=== PATIENT | male | born 1955 | race Caucasian/White ===

== ENCOUNTER → 2025-04-23 08:25 | Outpatient (REF) | payer OTHER, SELFPAY | LOC: RAD 08:25 | PROVIDERS: ATTENDING PHYSICIAN Podiatrist Foot Surgery | DX: I73.9 Peripheral vascular disease, unspecified (principal); S91.302A Unspecified open wound, left foot, initial encounter | CPT/HCPCS: 93922; 93925 ==

== ENCOUNTER 2025-05-07 07:11 | Day surgery (SDC) | payer OTHER, SELFPAY ==
[2025-05-07] VITALS (16 sets, daily range): BP systolic 103–145; BP diastolic 59–111; BMI 24.4
--- NOTE | 2025-05-07 07:41 | W.SUR.PREOP ---
Pre-Operative Surgical Note
-
I have examined this patient prior to the performance of the scheduled procedure.
The patient's condition is unchanged from the time of the current History and
Physical and the patient is able to undergo the scheduled procedure.
[2025-05-07] MEDS: NSS 252 ML IV (07:55)
[2025-05-07 08:26] LABS: Hematocrit 43.6 % (39.0-52.0); Hemoglobin 15.4 g/dL (13.0-18.0); Mean Corp Hgb Conc. 35.3 g/dL (33.0-37.0); Mean Corpuscular Volume 98.6 fL (80.0-94.0); Platelet Count 197 10^3/uL (130-400); Red Cell Dist. Width 13.6 % (11.5-14.5)
[2025-05-07 08:36] LABS: INR 0.92; PT 12.9 Sec (11.4-14.6)
[2025-05-07 08:37] LABS: APTT 32.2 Sec (23.4-35.0)
[2025-05-07 08:42] LABS: Blood Urea Nitrogen 9 mg/dl (9-20); Calcium 9.6 mg/dl (8.4-10.2); Carbon Dioxide 24 mmol/L (22-30); Chloride 98 mmol/L (98-107); Estimated Creatinine Clearance 89 ml/min; Glucose 117 mg/dl (70-99); Potassium 3.9 mmol/L (3.5-5.1); Sodium 131 mmol/L (135-145); eGFR > 60.00
--- NOTE | 2025-05-07 09:57 | W.SUR.POST ---
Surgical Immediate Post Op
Note
Pre Op Diagnosis: PAD
Post Op Diagnosis: PAD
Procedure Performed: LLE arteriogram, left AT long segment balloon angioplasty
Primary Surgeon: Victorino
Anesthesia: local and sedation
Estimated Blood Loss: <2cc
Fluids: see anesthesia flow sheet
Drains/Shunts: none
Specimens/Cultures: none
Doppler/Duplex/Angio (Y/N): Y
Complications: none
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
[2025-05-07 11:01] LABS: ALT (SGPT) 18 U/L (0-50); AST (SGOT) 25 U/L (17-59); Albumin 4.3 g/dl (3.5-5.0); Alkaline Phosphatase 68 U/L (38-126); Total Protein 7.0 g/dl (6.3-8.2)
[2025-05-07] MEDS: NSS 1000 IV (11:46)
[2025-05-07] MEDS: LOW STRENGTH ASPIRIN 81 MG PO (11:51)
[2025-05-07] MEDS: AUGMENTIN 875 MG/125 MG 1 TABLET PO (12:07)
--- NOTE | 2025-05-07 16:28 | OR.RPT ---
Operative Report
Operative Report
PROCEDURE DATE: 05/07/2025
Preoperative diagnosis: Chronic limb threatening ischemia left lower extremity.
Postoperative diagnosis: Same
Procedure:
1. Duplex assisted right common femoral artery cannulation.
2. Aortogram and pelvic angiogram.
3. Left lower extremity arteriogram.
4. Balloon angioplasty of left anterior tibial artery (long segment) with 3 mm angioplasty balloon and subsequent 2.5 mm shorter segment balloon.
5. Right femoral angiography.
6. Supervision and interpretation.
Surgeon: Victorino
Travel Registered Nurse Nicu: None
Complications: None
Anesthesia: Local, sedation
Fluoroscopy:
10.8 min
57 mGy
13.60 gy.cm2
Indications for procedure:
Chronic limb threatening ischemia with nonhealing left foot wounds. Risk/benefits/alternatives of angiography were fully discussed. Patient understood all wish to proceed.
Description of procedure:
Patient was identified, brought to the operating room. Placed on the table in the supine position. After the adequate administration of anesthesia, the patient was prepped and draped in the standard surgical fashion. A standard preoperative
timeout was undertaken and everybody was in agreement with the plan.
The right common femoral artery was accessed with a micropuncture kit under direct duplex ultrasound guidance. A 5 Mauritian sheath was then advanced over a 0.035 inch wire, and a azul's hook catheter was advanced into the abdominal aorta.
Aortogram and pelvic angiogram was obtained. Findings as follows:
Infrarenal aorta: Patent infrarenal abdominal aorta with no stenosis. However there is significant eccentric calcification. In addition there appears to be a small distal infrarenal aortic aneurysm.
Right common iliac artery: Patent with no significant stenosis. Calcified rosado.
Right external iliac artery: Patent with mild stenosis about 2 cm distal to the bifurcation of the common iliac artery..
Left common iliac artery: Patent with no significant stenosis, calcified rosado.
Left external iliac artery: Patent with no significant stenosis.
Using a floppy angled hydrophilic wire, the left common femoral artery was cannulated and the catheter was advanced. Left lower extremity arteriogram was obtained. Findings as follows:
Common femoral artery: Patent with no significant stenosis.
Profunda femoris artery: Patent with no significant stenosis.
Superficial femoral artery: Luminal irregularities throughout, but no significant stenosis at all noted.
Popliteal artery: Patent with no significant stenosis.
Anterior tibial artery: Patent at its origin and through its entire course. However there is diffuse stenosis from about 2 to 3 cm beyond the origin all the way to the level of the distal ankle. Areas of potential focal occlusion within this
diffuse stenosis. At the ankle the artery became robust again in size and gave rise to the dorsalis pedis on the foot which gave digital branches.
Tibial peroneal trunk: Patent with no significant stenosis.
Peroneal artery: Patent, more dominant of the runoff vessels. At the ankle gave 1 collateral to reconstitute the distal anterior tibial artery. Second collateral vessel reconstituted the posterior tibial artery. It almost appeared like a natural
connection to the posterior tibial artery (anatomic aberrancy) versus a collateral. Regardless and that collateral or aberrant anatomy there was severe stenosis/focal occlusions x 2.
Posterior tibial artery: Collateral that followed the course of the posterior tibial artery through its proximal two thirds, but unclear that that is the real vessel. At the ankle the posterior tibial artery was reconstituted by the peroneal
collateral as noted above.
At this point I selectively cannulated the superficial femoral artery and and then the popliteal artery. I then exchanged for a Storq wire and an up and over 5 Mauritian 70 cm sheath. Patient was given an appropriate dose of IV heparin. Now under
roadmap assisted guidance using a flopping of hydrophilic wire and a CXI catheter I was able to traverse the severe stenoses throughout the anterior tibial artery and gain wire access into the distal anterior tibial artery/dorsalis pedis. I
advanced the CXI catheter and then exchanged for a SENIOR MARKETING DATA ANALYST wire. I then performed balloon angioplasty of the long segment with a long 3 mm angioplasty balloon with overlapping inflations. Completion angiogram now demonstrated a good result with
significant resolution of the diffuse stenosis. At the ankle still though just proximal to the reconstitution of the more distal anterior tibial artery points, there was still residual stenosis. Therefore I then used a shorter segment 3 mm
angioplasty balloon. Completion angiogram demonstrated some resolution of the stenosis but the flow was still a little bit slow, and there may have been a small dissection flap distally. Therefore in order to tack this flap I used a 2.5 mm balloon
again with a prolonged inflation. Completion angiogram demonstrated no residual flap or stenosis. At this point I was very satisfied. I debated whether to balloon that collateral branch that fed the posterior tibial artery from the peroneal.
However my concern was that this was a small collateral branch and could injure this branch and render worsened perfusion. I felt that if the posterior tibial distally needed to be revascularized, it may be better served with a bypass. At this
point over a 0.035 inch wire I withdrew the sheath to the right external iliac artery. Right femoral angiogram demonstrated good puncture in the right common femoral artery. The SFA appeared chronically occluded (appeared patent for about 2 cm).
There is reconstitution of the distal SFA/above-knee popliteal artery. At this point I exchanged for a short 5 Mauritian sheath. Wires and catheters were all withdrawn. Patient was taken to recovery room where the sheath was withdrawn and manual
pressure was applied to the puncture site. Patient had been also given protamine to reverse the heparin. Hemostasis was fully achieved. The patient tolerated the procedure well.
== END 2025-05-07 16:15 | disposition home or self-care (01) ==
LOC: CATH 07:11
PROVIDERS: ATTENDING PHYSICIAN Surgery Vascular Surgery; FAMILY PHYSICIAN Family Medicine
DX: I70.222 Atherosclerosis of native arteries of extremities with rest pain, left leg (principal)
CPT/HCPCS: 37228; C1725; 80053; 82248; 85027; 85610; 85730; 86850; 86900; 86901; C1769; C1887; C1894; Q9967

== ENCOUNTER 2025-05-15 13:25 | Inpatient (IN) | payer OTHER, SELFPAY ==
[2025-05-15] VITALS (10 sets, daily range): BP systolic 96–141; BP diastolic 52–89; BMI 23.8; BMI 23.0
--- NOTE | 2025-05-15 09:07 | ED.GENMED ---
History of Present Illness
General
Chief Complaint: Post Operative Problem(s)
Source: patient
Exam Limitations: none
Time Seen by Provider: 05/15/25 09:00
History of Present Illness
History of Present Illness:
See MDM
Past History
Past History
ED Past Medical History: Hypercholesterolemia
ED Past Surgical History: None
Social History
Tobacco: Non-smoker
Alcohol: None
Phy Exam
Physical Exam
Physical Exam:
See MDM
Course
Orders/Labs/Results
Orders:
Orders
05/15/25 09:06
Electrocardiogram (*1) Urgent
Reason for Study: PreOp
EKG- Treatment ONCE
Toes 2 Views, Left CR [CR Toe(s) Min 2 Vw Left] Urgent
Comment:
Reason For Exam: left 2-3 toe ulceration and pain
05/15/25 09:07
Consult Vascular Surgery [Vascular Surgery Consult] Routine
Consulting Provider: Byron Gleason
Was physician already notified: Yes
05/15/25 09:09
Consult Podiatry [PODIATRY CONSULT] Routine
Consulting Provider: Fco Gayle
Was physician already notified: Yes
05/15/25 09:21
US CHRISTIN/TBI Only JONATHON Urgent
Reason For Exam: non-healing toe wound
05/15/25 09:34
Type+Screen Urgent
Complete Blood Count/With Diff Urgent
Comprehensive Metabolic Panel Urgent
PTT Urgent
Prothrombin Time Urgent
Abnormal Lab Results
05/15/25
09:34
RBC 4.09 L 10^6/uL
(4.70-6.10)
MCV 99.5 H fL
(80.0-94.0)
MCH 35.9 H pg
(27.0-31.0)
Absolute Monos (auto) 0.9 H 10^3/uL
(0.1-0.6)
Absolute Eos (auto) 0.8 H 10^3/uL
(0-0.7)
Lymphocytes % 15.4 L %
(20.5-51.1)
Monocytes % 9.7 H %
(1.7-9.3)
Eosinophils % 8.6 H %
(0-6)
Sodium 125 L mmol/L
(135-145)
Chloride 97 L mmol/L
(98-107)
05/15/25 09:34
05/15/25 09:34
Vital Signs
Initial and Last Documented VS:
Initial Vital Signs
Temp Pulse Resp BP Pulse Ox
97.8 F 73 16 141/70 98
05/15/25 08:55 05/15/25 08:55 05/15/25 08:55 05/15/25 08:55 05/15/25 08:55
Last Documented Vital Signs
Temp Pulse Resp BP Pulse Ox
97.8 F 73 16 141/70 98
05/15/25 08:55 05/15/25 08:55 05/15/25 08:55 05/15/25 08:55 05/15/25 09:08
MDM/Problems Addressed
Differential Diagnosis Includes:
Note:
CHIEF COMPLAINT(S)
Non-healing wound on the left toe
HISTORY OF PRESENT ILLNESS
The patient is a 69-year-old male who presents with a non-healing wound on the left toe. He recently underwent an angioplasty procedure with Dr. Gleason due to a blockage aimed at improving blood flow to the affected area. Despite the procedure, the
wound has not shown signs of healing, raising concerns about possible osteomyelitis or the need for surgical removal of the toe. The patient expresses frustration as he has been dealing with the issue for over a month and a half. He describes the
wound as painless, which may be due to compromised blood flow affecting nerve function. The patient reports that he has had a 'hammer toe' issue for over 25 years, and despite having good pulses now as noted by Dr. Gleason, previously there was
insufficient blood flow to the area.
PAST MEDICAL AND SURIGICAL HISTORY
The patient reports having dealt with a 'hammer toe' for over 25 years.
CHRONIC MEDICAL CONDITIONS SIGNIFICANTLY AFFECTING CARE
The patient does not have a history of diabetes, but he experiences poor blood flow affecting the toe, analogous to a diabetic foot condition.
MEDICATIONS
The patient is currently on antibiotics, specifically doxycycline and Levaquin (levofloxacin).
REVIEW OF SYSTEMS
- Vascular/Blood Flow: Condition described pooja to diabetic foot due to poor blood flow.
- Endocrine: No history of diabetes reported.
- Neurological: No pain reported in the affected toe, potentially related to compromised blood flow and nerve function.
PHYSICAL EXAM
General: Alert, no acute distress.
Skin: Warm, dry.
Head: Normocephalic, atraumatic
Neck: Appears supple, trachea midline.
Eyes, Ears, Nose, Mouth, and Throat: Moist mucous membranes
Cardiovascular: No signs of cyanosis
Respiratory: Respirations are non-labored.
Abdomen: Non-distended
Musculoskeletal: DP pulses palpable on left foot. Decreased capillary refill to toes. Ulceration noted to the dorsum aspect of left 2nd and 3rd toe.
Neurological: No focal neurological deficit observed.
Psychiatric: Cooperative, appropriate mood and affect.
PROBLEM LIST
- Acute: Non-healing wound on the left toe, potential osteomyelitis.
PLAN
- Arrange basic blood work for pre-operative evaluation.
- Obtain an x-ray of the toe to rule out or confirm osteomyelitis.
- Coordinate with Dr. Gleason regarding further management and surgical considerations if indicated.
DIFFERENTIAL DIAGNOSIS
The Differential Diagnosis includes, in no particular order and is not limited to:
1. Osteomyelitis
2. Peripheral arterial disease
3. Neuropathy secondary to vascular insufficiency
4. Soft tissue infection
5. Chronic non-healing ulcer
6. Vascular insufficiency
7. Arteriosclerosis obliterans
8. Veno-occlusive disease
9. Ischemic ulcer
10. Raynauds phenomenon
05/15/25 - 09:24
Patient case discussed with podiatry and vascular surgery; will admit to the hospitalist service for further management. Plan to repeat Doppler studies of the leg as recommended by vascular surgery.
SUMMARY OF ENCOUNTER
The patient was seen in the emergency department for a non-healing ulceration on his left toe despite having undergone an angioplasty of the same leg. The concern for the poorly healing wound led to a recommendation by podiatry for the patient�s
admission for a potential toe amputation. The patient remains stable and well-appearing.
DISPOSITION
Admit
MANAGEMENT OF THE PATIENTS CARE WAS DISCUSSED WITH
The patients case was discussed with the podiatry team, and it was decided to admit the patient to the hospital service. There is an operating room (OR) scheduled for the patient later today.
PLAN
Admit to hospital service for further management and scheduled OR for potential toe amputation. The patient will remain NPO in preparation for the potential procedure.
MEDICAL DECISION MAKING
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
-Data:
Category 3: Discussion of management with podiatry for the need for hospital admission and the potential toe amputation.
DIAGNOSIS
1. Non-healing ulcer of left toe, ICD-10: L97.509
2. Peripheral vascular disease, unspecified, ICD-10: I73.9
*Pulse Oximetry
SaO2: 98
Oxygen Mode of Delivery: Room air
Patient hypoxic: no
*EKG
Interpreted by ED Provider?: Yes
EKG Intrepretation Date: 05/15/25
EKG Intrepretation Time: 11:46
Interpretation: normal (Sinus rhythm with sinus arrhythmia, normal axis, no STEMI)
*Critical Care Note
Total Time (30-74mins, 75-104mins- exclusive of procedures): Not Applicable
ED Attending Note
-
Portions of this chart may have been created with voice recognition software.� Occasional wrong word or��sound alike� substitutions may have occurred due to the inherent limitations of voice recognition software.
Discharge Plan
Departure
Patient Disposition: Admit
Date of Disposition: 05/15/25
Time of Disposition: 10:49
Admit to: Med/Surg
Presentation/result/management discussed w/ accepting MD/DO: Hospitalist
Discharge Problem:
Nonhealing ulcer of left lower extremity
Prescriptions:
No Action
levofloxacin 750 mg Tablet
750 mg PO DAILY
atorvastatin 10 mg Tablet
10 mg PO QPM Qty: 90 0RF
aspirin 81 mg Tablet,Chewable
81 mg PO DAILY Qty: 90 0RF
doxycycline hyclate 100 mg tablet
100 mg PO BID
Referrals:
UNKNOWN - PT DOES,NOT KNOW [Family Provider]
Interventions
Interventions:
*Risk Screen - Suicide Last Done: 05/15/25 08:55
*General Assessment Last Done: 05/15/25 09:18
*Neglect/Abuse Screening Last Done: 05/15/25 08:55
*ED- Fall Risk Assessment Last Done: 05/15/25 09:18
*ED COVID-19 Vaccine History Last Done: 05/15/25 09:18
*ED Influenza Vaccine History Last Done: 05/15/25 09:18
ED-Skin Assessment Last Done: 05/15/25 09:18
Discharge Date and Time
Print Language: SLOVAK
[2025-05-15 09:45] LABS: Hematocrit 40.7 % (39.0-52.0); Hemoglobin 14.7 g/dL (13.0-18.0); Mean Corp Hgb Conc. 36.1 g/dL (33.0-37.0); Mean Corpuscular Volume 99.5 fL (80.0-94.0); Nucleated Red Blood Cells % 0 % (-); Platelet Count 209 10^3/uL (130-400); Red Cell Dist. Width 13.6 % (11.5-14.5)
[2025-05-15 09:52] LABS: INR 0.90; PT 12.6 Sec (11.4-14.6)
[2025-05-15 09:53] LABS: APTT 33.0 Sec (23.4-35.0)
[2025-05-15 10:00] LABS: ALT (SGPT) 16 U/L (0-50); AST (SGOT) 21 U/L (17-59); Albumin 4.0 g/dl (3.5-5.0); Alkaline Phosphatase 64 U/L (38-126); Blood Urea Nitrogen 12 mg/dl (9-20); Calcium 9.1 mg/dl (8.4-10.2); Carbon Dioxide 22 mmol/L (22-30); Chloride 97 mmol/L (98-107); Glucose 96 mg/dl (70-99); Potassium 4.2 mmol/L (3.5-5.1); Sodium 125 mmol/L (135-145); Total Protein 6.6 g/dl (6.3-8.2); eGFR > 60.00
--- NOTE | 2025-05-15 13:20 | HPS.HSE ---
Family Physician
-
Family Physician: NOT KNOW UNKNOWN - PT DOES
Chief Complaint
-
Non-healing Toe ulcer
History of Present Illness
69M with PAD s/p recent LLE angioplasty, tobacco use, presents with L 2nd toe ulcer, nonhealing. He underwent hammertoe procedure with poor healing, s/p debridement with persistent issues. Denies pus or bleeding. Notes BLE ankle edema. He denies
fevers, chills, CP, SOB, recent illness. He was sent in by podiatry to be admitted for OR.
Medical History
Past Medical History
Past Medical History: Reports None
Past Surgical History: Reports Other
Additional Past Surgical History:
angioplasty LLE
Social History
Tobacco: Smoker (1/2 ppd x 40+ years)
Alcohol: Daily (1 beer per day)
Drug: None
Family History
Family History: Hypertension (in mother)
Allergies / Home Medications
Allergies reflects when Allergies were last updated in [employer].
Home Medications with original date entered in [employer]
Allergy/Medication List:
Allergies
Allergy/AdvReac Type Severity Reaction Status Date / Time
No Known Allergies Allergy Unverified 05/07/25 07:52
Home Medications
levofloxacin 750 mg tablet 750 mg PO DAILY 05/05/25
aspirin 81 mg chewable tablet 81 mg PO DAILY #90 tabs 05/07/25
atorvastatin 10 mg tablet 10 mg PO QPM #90 tabs 05/07/25
doxycycline hyclate 100 mg tablet 100 mg PO BID 05/15/25
Review of Systems
-
A 12 point ROS was completed and negative except as noted: Yes
Physical Exam
Vital Signs
Vital Signs
Temp Pulse Resp BP Pulse Ox
97.8 F 73 16 141/70 98
05/15/25 08:55 05/15/25 08:55 05/15/25 08:55 05/15/25 08:55 05/15/25 09:08
Physical Exam
General: Well Developed, Well Nourished and No Apparent Distress
HEENT: NormoCephalic, Moist mucous membranes and Atraumatic
Respiratory: Clear
Cardiac: S1/S2 and Regular Rhythm; No Murmur or Rub
GI: Soft, Non Tender, Non Distended and Normal Bowel Sounds; No Organomegaly
Rectal: Deferred by Provider
Musculoskeletal: Edema, Left Lower Extremity, Edema, Right Lower Extremity and Other (both feet erythematous and pitting edema, distal pulses intact)
Skin: Ulcers (left 2nd toe)
Neuro: Awake, AO x 3 and Nonfocal/grossly intact
Psych: Calm
Laboratory Results
-
05/15/25 09:34
05/15/25 09:34
Laboratory Results
PT 12.6 Sec (11.4-14.6) 05/15/25 09:34
INR 0.90 05/15/25 09:34
APTT 33.0 Sec (23.4-35.0) 05/15/25 09:34
Total Bilirubin 1.3 mg/dl (0.2-1.3) 05/15/25 09:34
AST 21 U/L (17-59) 05/15/25 09:34
ALT 16 U/L (0-50) 05/15/25 09:34
Alkaline Phosphatase 64 U/L (38-126) 05/15/25 09:34
Data Reviewed
-
Diagnostic Radiology: Report Reviewed by me (Findings suggest previous osteotomy at the PIP joint of the second and third toes. There is no radiographic evidence of osteomyelitis however MRI is more sensitive if there is clinical suspicion)
Lab Data: Labs Reviewed by me and Discussed with Patient
Impression/Plan
-
IMPRESSION:
69M w/ PAD s/p angioplasty LLE, tobacco use, presents with nonhealing ulcer of left second toe at site of previous hammertoe procedure.
PLAN:
Nonhealing ulcer of left second toe
No osteomyelitis on x-ray, patient denies pus, no leukocytosis. Has been on doxycycline/levofloxacin as outpatient. Took a dose today.
In light of planned amputation, will hold off antibiotics at this time unless directed by surgery.
N.p.o. for OR with podiatry
Pain control as needed oxycodone
PAD
Recent LLE angioplasty with Dr. Gleason
Hold aspirin for surgery
Continue statin
Tobacco use
Counseled to quit
Elevated blood pressure
Mild. No known diagnosis of HTN, will continue to monitor, if needed will start BP meds
Hyponatremia
NA is 125. Was 131 last week.
Check urine sodium, osm
Give 1 L IV fluid challenge
DVT PPx
SCDs
Full code
--- NOTE | 2025-05-15 14:31 | CM ---
Patient seen at bedside in ED> Patient states that he lives in a 2 story home with his fiance. Patient stated that he uses [facility] in [place] and his PCP is Dena from the [facility]. Patient has a boot and had a wound Vac prior
to admission as well as being followed by [facility]. CM will update liaison and patient plan is for discharge home with [facility] to follow. CM will continue to follow for discharge planning needs.
Plan;home with [facility]; watch medical treatment plan
[2025-05-15] MEDS: NSS 1000 IV (14:55)
[2025-05-15 15:20] LABS: Urine Character Slightly Cloudy (Clear)
--- NOTE | 2025-05-15 15:29 | W.PN.UPDATE ---
Update Note
Progress Note Update
pt seen, well known to office
will plan for amp 2nd toe left foot
no gauranttees given
pt declined debridement/wound vac and prefers amp of toe
anticipate dc late tomorrow or sat am
full consult dictated
--- NOTE | 2025-05-15 15:42 | PTCARENOTE ---
Pt. arrived to [facility] via stretcher. Walked from the stretcher to the bed with no needed assistance. Pt. oriented to room, nursing assessment completed. As admission questions were being asked, OR called for report on pt. Pt. walked to bathroom,
removed jewelry and clothing. Pt taken to OR by two volunteers.
--- NOTE | 2025-05-15 15:52 | W.PN.UPDATE ---
Update Note
Progress Note Update
Seen and evaluated while he was just wheeling into the OR for total procedure with Dr. Gayle. Examined him. His toe wounds are little bit dry. He has an excellent strong 2+ DP pulse. His foot is warm. I reviewed his ultrasound studies that
demonstrate normal TBI now, and CHRISTIN has improved as well (was low normal limits prior, now definitively in the normal range). Therefore this all denotes adequate perfusion for wound healing. From my standpoint should be adequate to heal toe
amputations being performed now. Discussed this with the patient and Dr. Gayle as well. Patient will continue to follow with me in the outpatient setting. Please call with any questions.
--- NOTE | 2025-05-15 16:41 | W.PN.UPDATE ---
Update Note
Progress Note Update
pt seen in RR
no pain
dressing cdi
cft intact
a.p s/p amp 2nd toe left foot---stable
pwb on heel with surg shoe
a/p s.p amp 2nd toe--stable
wound closed
anticipate dc lui or sat am
[2025-05-15 16:55] LABS: Urine Red Blood Cell >100 /HPF (0-2); Urine Squamous Cell 0-2 /LPF (Few); Urine White Cell 0-2 /HPF (0-5)
[2025-05-15] MEDS: LIPITOR 10 MG PO (17:29)
[2025-05-15] MEDS: KEFLEX 500 MG PO (21:26)
[2025-05-16] MEDS: ROXICODONE 5 MG PO ×2 (01:26→12:05)
[2025-05-16] MEDS: PERCOCET 5/325 2 TABLET PO (05:49)
[2025-05-16 06:57] LABS: Hematocrit 39.3 % (39.0-52.0); Hemoglobin 13.5 g/dL (13.0-18.0); Mean Corp Hgb Conc. 34.4 g/dL (33.0-37.0); Mean Corpuscular Volume 104.0 fL (80.0-94.0); Nucleated Red Blood Cells % 0 % (-); Platelet Count 195 10^3/uL (130-400); Red Cell Dist. Width 13.9 % (11.5-14.5)
[2025-05-16 07:34] VITALS: BP 111/43
[2025-05-16] MEDS: KEFLEX 500 MG PO (08:31)
[2025-05-16 08:45] LABS: Blood Urea Nitrogen 16 mg/dl (9-20); Calcium 8.9 mg/dl (8.4-10.2); Carbon Dioxide 25 mmol/L (22-30); Chloride 98 mmol/L (98-107); Estimated Creatinine Clearance 90 ml/min; Glucose 101 mg/dl (70-99); Potassium 4.6 mmol/L (3.5-5.1); Sodium 126 mmol/L (135-145); eGFR > 60.00
--- NOTE | 2025-05-16 09:57 | VNURNOTE ---
[facility]
Chart reviewed.� [facility].� Will continue to follow hospital course and DC plans.
--- NOTE | 2025-05-16 13:09 | CM ---
Chart reviewed and patient top return to home with with [facility].
Plan; Home with [facility].
--- NOTE | 2025-05-16 14:29 | W.PN.UPDATE ---
Update Note
Progress Note Update
pt seen fo fu amp 2nd toe left foot
no pain
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
dressing with some bleeding
foot warm
drm sutures intact, no cellulitis, no soi
C&S--no wbc, no growth yet
a/p s.p amp 2nd toe left--ice, wb on heel in sx shoe
pt can cont po abx he has at home
to apply abx ointment daily to 3rd toe only
dry at amp site
fu monday
stable for dc
--- NOTE | 2025-05-16 14:48 | W.DCSUMMARY ---
Discharge Summary
Discharge Data
Date of Admission: 05/15/25
Date of Discharge: 05/16/25
Total time spent discharging patient (in min): 31
-
Pending Results: Yes
Additional Pending Results:
TSH
T4
Cortisol
Hospital Course
Attending physician on day of discharge:
Gladys Daurte MD
Admission diagnosis:
Left second toe nonhealing ulcer
Discharge diagnosis:
Osteomyelitis, dehisced nonhealing wound second toe left foot, amputation of left second toe
Secondary diagnoses:
Microscopic hematuria
Hyponatremia
Tobacco use
PAD
Consultations:
Podiatry
Procedures:
Left second toe amputation
Hospital course:
69M with PAD s/p recent LLE angioplasty, tobacco use, presents with L 2nd toe ulcer, nonhealing. Sent in by podiatry.. Underwent amputation, path concerning for osteomyelitis. Postop course unremarkable, patient to continue to take his outpatient
oral antibiotic course podiatry next week. Incidentally found to have hyponatremia, sodium 125, asymptomatic. 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
chronic, patient to follow-up with PCP within 1 week for repeat studies and further workup. Incidentally also found to have microscopic hematuria, urine RBC greater than 100, patient denies gross hematuria or urinary symptoms. Outpatient urology
referral placed.
Physical exam on discharge:
Gen: NAD
HEENT: PERRLA, EOMI, MMM, neck supple
Cards: RRR, no M/G/R
Resp: Lungs CTAB, no W/R/R
GI: soft, NT/ND/NABS
Skin/MSK: Left foot in surgical boot, right foot with erythema and mild edema. Pulses intact.
Heme: No LAD
Psych: Calm
Neuro: AAOx3
Discharge disposition:
Home
Discharge Plan
-
Patient Disposition: Home (Routine Discharge)
Discharge Diagnosis/Procedures: Left 2nd toe ulcer amputation
Diet: Regular
Activity: As tolerated and Other activity
Additional Activity: Weight bearing on heel in surgical shoe
Wound Care: Keep the wound clean, dry and intact. Apply antibiotic ointment daily to 3rd toe only
Instructions: Hyponatremia, Amputation of the foot or toe (DC), Blood in the urine (hematuria) - ED (DC)
Referrals:
[facility] [Provider Group, Urology] - in one to two weeks
Referral Note: Hematuria
Fco Gayle DPM [Specified Professional Personl, Podiatry]
UNKNOWN - PT DOES,NOT KNOW [Family Provider] - in less than 1 week
Additional Discharge Medication Instructions: You received an amputation of your second toe because of a nonhealing ulcer. Continue to take the antibiotics that you have at home. Follow-up with Dr. Gayle in his office on Monday. Keep the wound
clean dry and intact, apply ointment as directed to the third toe. Stop smoking, as it delays wound healing. You are also found to have low sodium in your blood work, but you were not symptomatic, so please follow-up with your primary care doctor
for further workup and treatment. Also you were found to have red blood cells in the urine, known as microscopic hematuria. A referral has been sent to the urologist for further workup and treatment, if they don't call you, please call them.
Prescriptions:
Continued
levofloxacin 750 mg Tablet
750 mg PO DAILY
atorvastatin 10 mg Tablet
10 mg PO QPM Qty: 90 0RF
aspirin 81 mg Tablet,Chewable
81 mg PO DAILY Qty: 90 0RF
doxycycline hyclate 100 mg tablet
100 mg PO BID
Discharge Orders:
Discharge Patient (As Directed); Ordered 05/16/25
Ordered By: Gladys Duarte
Discharge Date and Time
Print Language: NEPALI
[2025-05-16 15:32] VITALS: BP 143/67
[2025-05-16 18:28] LABS: Cortisol, Random 9.7 ug/dl; TSH 1.96 uIU/ml (0.47-4.68)
== END 2025-05-16 15:45 | disposition home health service (06) | DRG 857 ==
LOC: 3 WEST ACU 13:25
PROVIDERS: ADMITTING PHYSICIAN Internal Medicine; CONSULT PHYSICIAN Podiatrist Foot Surgery; EMERGENCY PHYSICIAN Student in an Organized Health Care Education/Training Program
PROC: 0Y6R0Z0 Detachment at Right 2nd Toe, Complete, Open Approach (ICD-10-PCS; 2025-05-15)
DX: T81.41XA Infection following a procedure, superficial incisional surgical site, initial encounter (principal); E87.1 Hypo-osmolality and hyponatremia; M86.8X7 Other osteomyelitis, ankle and foot; E11.69 Type 2 diabetes mellitus with other specified complication; E11.51 Type 2 diabetes mellitus with diabetic peripheral angiopathy without gangrene; E11.40 Type 2 diabetes mellitus with diabetic neuropathy, unspecified; F17.210 Nicotine dependence, cigarettes, uncomplicated; R03.0 Elevated blood-pressure reading, without diagnosis of hypertension; R31.29 Other microscopic hematuria; Y83.8 Other surgical procedures as the cause of abnormal reaction of the patient, or of later complication, without mention of misadventure at the time of the procedure; Y92.9 Unspecified place or not applicable; Z79.82 Long term (current) use of aspirin; Z82.49 Family history of ischemic heart disease and other diseases of the circulatory system
CPT/HCPCS: 73630; 73660; 80048; 80053; 81003; 81015; 82533; 83930; 83935; 84300; 84436; 84443; 85025; 85610; 85730; 86850; 86900; 86901; 87070; 87075; 87176; 87205; 88305; 88311; 93005; 93922; 99285